=== PATIENT | male | born 1960 | race Caucasian/White ===

== ENCOUNTER → 2017-03-01 | Outpatient (CLI) | payer OTHER ==
[~2017-03-01] MED LIST: LIS10 PO; LOR5 PO; METO-259 PO; NAP500
--- NOTE | 2017-03-01 12:03 | RADIOLOGY IMAGING REPORT ---
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 There are mil d to moderate degenerative changes involving the DIP joints of the first, third, fourth and fifth fin gers. There are moderate degenerative changes involving the first carpometacarpal articulation There are moderate scattered changes but the DIP joints of the left hand and to a slightly lesser ext ent the PIP joints. There are severe degenerative changes involving the left first carpometacarpal a rticulation and mild spurring at the left first MCP joint. IMPRESSION: 1. Degenerative changes of both hands as detailed above Report Dictated By: Yvette Cordero MD at 03/01/2017 11:56 AM Report E-Signed By: Yvette Cordero MD at 03/01/2017 11:59 AM WSN:[email or web address]
== END ==
LOC: RAD 11:12
PROVIDERS: ATTEND Nurse Practitioner Psychiatric/Mental Health
DX: M19.042 Primary osteoarthritis, left hand (principal); M19.041 Primary osteoarthritis, right hand; Z89.021 Acquired absence of right finger(s)

== ENCOUNTER → 2017-03-19 | Outpatient (CLI) | payer OTHER ==
--- NOTE | 2017-03-19 13:35 | RADIOLOGY IMAGING REPORT ---
[place] [facility] [place] Kedar Kennedy : 1960 MR: [id number] V: [id number] EXAM DATE: ORDERING PHYSICIAN: JJ GARCIA TECHNOLOGIST: Location: [facility] [place] Patient: Kedar Kennedy : 1960 Visit/Account:[id number] Date of Sevice: 03/19/2017 Exam type: CERVICAL SPINE 2 OR 3 VIEW History: Bilateral shoulder pain neck pain arm pain Comparison: None. Findings: The patient's head is canted towards the right. There is straightening of normal cervical lordosis a ctual mild kyphosis centered about C4-5. Is moderate disc space narrowing at C5-6 and C6-7 there is no evidence of prevertebral soft tissue swelling IMPRESSION: 1. Reversal of the normal cervical doses with mild kyphosis seen at C4-5 Moderate spondylotic changes C5-6 and C6-7. If patient's symptoms persist MR may be helpful Report Dictated By: Yvette Cordero MD at 03/19/2017 1:29 PM Report E-Signed By: Yvette Cordero MD at 03/19/2017 1:31 PM WSN:[email or web address]
--- NOTE | 2017-03-19 13:36 | RADIOLOGY IMAGING REPORT ---
FACILITY: [facility] PATIENT NAME: Kedar Kennedy : 1960 MR: [id number] V: [id number] EXAM DATE: ORDERING PHYSICIAN: JJ GARCIA TECHNOLOGIST: [place] [facility] [place] Patient: Kedar Kennedy : 1960 Visit/Account:[id number] Date of Sevice: 03/19/2017 Exam type: SHOULDERS BILAT 2 OR MORE VIEW History: Bilateral shoulder pain Comparison: None. Findings: There is moderate narrowing of the left glenohumeral joint with marginal spurring noted along the inf erior aspect of the joint. There is no evidence of acute fracture dislocation. Mild degenerative ch anges at the left AC joint noted. There is mild narrowing of the right glenohumeral joint and moderate degenerative changes at the righ t AC joint. No evidence of acute fracture dislocation IMPRESSION: 1. Moderate degenerative changes at the left glenohumeral joint and mild degenerative changes at the right glenohumeral joint Mild degenerative changes at the left AC joint and moderate degenerative changes at the right AC join t Report Dictated By: Yvette Cordero MD at 03/19/2017 1:31 PM Report E-Signed By: Yvette Cordero MD at 03/19/2017 1:32 PM WSN:[email or web address]
== END ==
LOC: RAD 11:35
DX: M47.892 Other spondylosis, cervical region (principal); M19.012 Primary osteoarthritis, left shoulder; M19.011 Primary osteoarthritis, right shoulder
CPT/HCPCS: 72040

== ENCOUNTER → 2017-11-16 | Outpatient (CLI) | payer OTHER ==
[2017-11-16 10:50] LABS: PLATELET COUNT, AUTOMATED 244 K/uL (150-450)
[2017-11-16 11:06] LABS: LDL CHOLESTEROL 93 mg/dl
== END ==
LOC: LAB 10:18
PROVIDERS: ATTEND Nurse Practitioner Psychiatric/Mental Health
DX: Z00.00 Encounter for general adult medical examination without abnormal findings (principal)
CPT/HCPCS: 36415; 82040; 82247; 82310; 82374; 82435; 82465; 82565; 82947; 83036; 83718; 84075; 84132; 84155; 84295; 84443; 84450; 84460; 84478; 84520; 85025

== ENCOUNTER → 2017-11-16 | Outpatient (CLI) | payer OTHER ==
--- NOTE | 2017-11-16 09:34 | RADIOLOGY IMAGING REPORT ---
FACILITY: [facility] - [place] PATIENT NAME: Kedar Kenendy : 1960 MR: [id number] V: [id number] EXAM DATE: ORDERING PHYSICIAN: ANTWAN TATE TECHNOLOGIST: Location: [facility] - [place] Patient: Kdear Kennedy : 1960 Visit/Account:[id number] Date of Sevice: 11/16/2017 Exam type: ORBITS FOREIGN BODY 1 VIEW History: Pre-MRI screening Comparison: None. Findings: No radiopaque metallic foreign bodies project over the orbits IMPRESSION: 1. No radiopaque metallic foreign bodies project over the orbits Report Dictated By: Yvette Cordero MD at 11/16/2017 9:28 AM Report E-Signed By: Yvette Cordero MD at 11/16/2017 9:30 AM WSN:[email or web address]
--- NOTE | 2017-11-16 12:22 | RADIOLOGY IMAGING REPORT ---
FACILITY: [facility] - [place] PATIENT NAME: Kedar Kennedy : 1960 MR: [id number] V: [id number] EXAM DATE: ORDERING PHYSICIAN: ANTWAN TATE TECHNOLOGIST: Location: [facility] - [place] Patient: Kedar Kennedy : 1960 Visit/Account:[id number] Date of Sevice: 11/16/2017 EXAMINATION: C SPINE W/O CONTRAST INDICATION: Pain COMPARISON: Radiographs March 19, 2017 TECHNIQUE: Multiplane MR imaging was performed through the cervical spine without contrast. FINDINGS: Vertebral body height: Normal Cord signal: Normal Marrow signal: Degenerative edema surrounds the C3-4 and C6-7 disc spaces. Degenerative edema within the C3 and C4 articular pillars. Prevertebral and paraspinal soft tissues: Normal Other: Reversal of the usual lordosis. C2-3: Moderate right facet arthropathy. No disc protrusion or canal narrowing. Mild right foraminal narrowing. C3-4: Slight anterolisthesis of C3 on C4, mild disc space degeneration, congenitally narrowed canal, small disc protrusion, moderate canal narrowing, moderate right facet arthropathy, severe right great er than left foraminal narrowing. C4-5: Congenitally narrowed canal, mild canal narrowing, moderate right facet arthropathy, severe rig ht and moderate to severe left foraminal narrowing. C5-6: Moderate disc space degeneration, slight retrolisthesis of C5 on C6, minimal disc bulge, congen itally narrowed canal, moderate canal narrowing, severe bilateral foraminal narrowing. C6-7: Moderate disc space degeneration, congenitally narrowed canal, small disc osteophyte complex, m oderate canal narrowing, severe bilateral foraminal narrowing. C7-T1: Mild right and moderate left foraminal narrowing, otherwise normal. IMPRESSION: 1. Moderate multilevel canal narrowing secondary to the constellation of findings described above, s ee level by level comments above. 2. Severe multilevel foraminal narrowing, see level by level comments above. 3. Reversal of the usual lordosis. Report Dictated By: Cristobal Florian MD at 11/16/2017 12:13 PM Report E-Signed By: Cristobal Florian MD at 11/16/2017 12:19 PM WSN:[email or web address]
== END ==
LOC: MRI 03:54
PROVIDERS: ATTEND Clinical Nurse Specialist Family Health
DX: M50.31 Other cervical disc degeneration, high cervical region (principal); M40.40 Postural lordosis, site unspecified
CPT/HCPCS: 70030; 72141